=== PATIENT | male | born 1965 | race Two or more races ===

== ENCOUNTER → 2025-02-12 | Outpatient (REF) | payer BC, OTHER ==
[~2025-02-12] MED LIST: MULTI-VITAMIN1 EACH PO; SINEMET 25-1001 EACH PO; VITAMIN D31 ML
[2025-02-12 14:00] LABS: BASOPHILS % 0.4 % (0.0-1.0); EOSINOPHILS % 1.6 % (0.0-6.0); LYMPHOCYTES % 18.4 % (18.0-39.1); MONOCYTES % 7.0 % (4.4-11.3); NEUTROPHILS % 72.4 % (38.7-80.0); RED CELL DISTRIBUTION WIDTH 14.7 % (11.7-14.4)
[2025-02-12 14:49] LABS: EST GLOMERULAR FILTRATION RATE 57.0 ML/MIN (>=60)
== END ==
LOC: RAD 13:12 → EDSTATUS 02-14 08:00
PROVIDERS: ATTEND Urology
DX: Z01.818 Encounter for other preprocedural examination (principal); N20.0 Calculus of kidney
CPT/HCPCS: 36415; 74018; 80053; 83970; 84550; 85025; 93005